=== PATIENT | male | born 1965 | race Caucasian/White ===

== ENCOUNTER 2017-04-04 12:29 | Emergency (ER) | payer MEDICAID ==
[~2017-04-04] VITALS: Ht 160 cm; Wt 122.3 kg
[~2017-04-04 12:29] MED LIST: ACET650S14 PR; ACID1PAC PO; AUD NEB; BISA10S PR; CEFX1I IV; DSS100 PO; HEPA500023 IV; IPRNEB IH; MOM30 PO; NIFE60TA71 PO; PANT40I IV; VANC1IV IV
[2017-04-04 13:11] LABS: APPEARANCE,URINE CLOUDY (CLEAR); GLUCOSE, URINE (UA) NEGATIVE (NEGATIVE); KETONES,URINE NEGATIVE (NEGATIVE); LEUKOCYTE ESTERASE ,URINE SMALL (NEGATIVE); OCCULT BLOOD,URINE MODERATE (NEGATIVE); PROTEIN,URINE SEE CONFIRM (NEGATIVE)
[2017-04-04 13:15] LABS: ADD UA MICROSCOPIC YES
[2017-04-04] MEDS ORDERED: ACETAMINOPHEN 500 MG TABLET PO ONE (13:15)
[2017-04-04] MEDS ORDERED: SULFAMETHOX/TRIMETH DS 800-160 MG/TABLET PO ONE (13:15)
[2017-04-04 13:17] LABS: SULFOSALICYLIC ACID,URINE 3+ (Negative)
[2017-04-04 13:20] LABS: SQUAMOUS EPITHELIAL CELL,UR Few /LPF (None Seen); WBC,URINE 51-100 /HPF (0-5)
[2017-04-04] MEDS ORDERED: CIPROFLOXACIN HCL 250 MG TABLET PO ONE (13:30)
[2017-04-04] MEDS ORDERED: PHENAZOPYRIDINE HCL 100 MG TABLET PO ONE (13:30)
[2017-04-04 14:13] VITALS: BP 158/111
== END 2017-04-04 14:28 | disposition home or self-care (01) ==
LOC: EMS 12:30
DX: N39.0 Urinary tract infection, site not specified (principal)
CPT/HCPCS: 87086; 99284

== ENCOUNTER 2017-08-05 11:09 | Emergency (ER) | payer MEDICAID ==
[~2017-08-05] VITALS: Ht 172.7 cm; Wt 100.0 kg
[2017-08-05] MEDS ORDERED: ACETAMINOPHEN 500 MG TABLET PO ONE (12:00)
[2017-08-05] MEDS ORDERED: ONDANSETRON HCL 4 MG/2 ML VIAL IVP ONE (12:00)
[2017-08-05] MEDS ORDERED: SODIUM CHLORIDE 0.9% 1,000 ML IV ONE (12:00)
[2017-08-05 12:12] LABS: HEMATOCRIT 34.5 % (41-53); LYMPHOCYTES # (AUTO) 0.8 K/uL (1.0-4.8); MEAN CORPUSCULAR HEMOGLOBIN 24.8 pg (26.0-34.0); MEAN CORPUSCULAR HGB CONC 31.8 G/dL (31.0-37.0); MEAN CORPUSCULAR VOLUME 78 fL (80-100); MONOCYTES # (AUTO) 0.7 K/uL (0.1-1.0); MONOCYTES % (AUTO) 9.2 % (2.0-9.0); NEUTROPHILS % (AUTO) 77.8 % (40.0-70.0); PLATELET COUNT (AUTO) 309 K/uL (150-450); RED BLOOD CELL COUNT(AUTO) 4.42 MIL/uL (4.50-5.90)
[2017-08-05 12:29] LABS: ANION GAP 11 mmol/L (8-16); CALCIUM, TOTAL 8.9 mg/dL (8.8-10.5); CARBON DIOXIDE 28 mmol/L (22-29); CHLORIDE 103 mmol/L (98-107); CREATININE 0.94 mg/dL (0.60-1.30); GLOMERULAR FILTR. RATE CALC > 60 mL/min (>60); GLUCOSE,RANDOM 99 mg/dL (70-110); SODIUM SERUM 142 mmol/L (136-145); UREA NITROGEN, BLOOD 11 mg/dL (7-18)
[2017-08-05 12:36] LABS: ALANINE AMINOTRANSFERASE 29 U/L (12-78); ALBUMIN 3.5 g/dL (3.4-5.0); ALKALINE PHOSPHATASE 96 U/L (46-116); ASPARTATE AMINOTRANSFERASE 26 U/L (15-37); BILIRUBIN,TOTAL 0.2 mg/dL (0.1-1.0); TOTAL PROTEIN, SERUM 7.8 g/dL (6.4-8.2)
[2017-08-05 12:54] LABS: INFLUENZA TYPE A NEGATIVE FOR TYPE A (NEGATIVE); INFLUENZA TYPE B POSITIVE FOR TYPE B (NEGATIVE)
[2017-08-05 13:42] VITALS: BP 167/92
== END 2017-08-05 13:52 | disposition home or self-care (01) ==
LOC: EMS 11:15
DX: J11.1 Influenza due to unidentified influenza virus with other respiratory manifestations (principal); R07.81 Pleurodynia; R11.0 Nausea; Z59.0 Homelessness
CPT/HCPCS: 36415; 71045; 80053; 85025; 87804; 96361; 96374; 99285; J2405; J7030

== ENCOUNTER 2017-10-04 07:24 | Emergency (ER) | payer MEDICAID ==
[~2017-10-04] VITALS: Ht 172.7 cm; Wt 113.5 kg
[2017-10-04 12:47] VITALS: BP 186/107
== END 2017-10-04 10:12 | disposition home or self-care (01) ==
LOC: EMS 07:26
DX: J40 Bronchitis, not specified as acute or chronic (principal); R78.71 Abnormal lead level in blood; J98.11 Atelectasis; I51.7 Cardiomegaly; Z59.0 Homelessness
CPT/HCPCS: 93005; 99284

== ENCOUNTER 2017-10-09 06:41 | Emergency (ER) | payer MEDICAID ==
[~2017-10-09] VITALS: Ht 172.7 cm; Wt 113.6 kg
[2017-10-09] MEDS ORDERED: GuaiFENesin/D-METHORPHAN [SUGAR-FREE] 200-20MG/10 ML SYRUP UDCUP PO ONE (08:45)
[2017-10-09] MEDS ORDERED: ACETAMINOPHEN/CODEINE 300-30 MG TABLET PO ONE (08:45)
[2017-10-09] MEDS ORDERED: AmLODIPine BESYLATE 5 MG TABLET PO ONE (08:45)
[2017-10-09 09:05] LABS: BASOPHILS % (AUTO) 0.5 % (0.0-2.0); EOSINOPHILS % (AUTO) 0.5 % (1.0-6.0); HEMATOCRIT 34.3 % (41-53); HEMOGLOBIN 10.8 g/dL (13.5-17.5); LYMPHOCYTES # (AUTO) 2.1 K/uL (1.0-4.8); LYMPHOCYTES % (AUTO) 14.9 % (22.0-44.0); MEAN CORPUSCULAR HEMOGLOBIN 24.2 pg (26.0-34.0); MEAN CORPUSCULAR HGB CONC 31.4 G/dL (31.0-37.0); MEAN CORPUSCULAR VOLUME 77 fL (80-100); MONOCYTES % (AUTO) 6.8 % (2.0-9.0); NEUTROPHILS # (AUTO) 10.9 K/uL (1.8-7.7); NEUTROPHILS % (AUTO) 77.3 % (40.0-70.0); PLATELET COUNT (AUTO) 378 K/uL (150-450); RED BLOOD CELL COUNT(AUTO) 4.45 MIL/uL (4.50-5.90); RED CELL DISTRIBUTION WIDTH 17.2 % (11.5-14.5)
[2017-10-09 09:09] LABS: ANION GAP 9 mmol/L (8-16); CALCIUM, TOTAL 8.9 mg/dL (8.8-10.5); CARBON DIOXIDE 27 mmol/L (22-29); CHLORIDE 101 mmol/L (98-107); CREATININE 0.93 mg/dL (0.60-1.30); GLOMERULAR FILTR. RATE CALC > 60 mL/min (>60); GLUCOSE,RANDOM 109 mg/dL (70-110); POTASSIUM 4.1 mmol/L (3.5-5.1); SODIUM SERUM 137 mmol/L (136-145); UREA NITROGEN, BLOOD 16 mg/dL (7-18)
[2017-10-09 09:14] LABS: ALANINE AMINOTRANSFERASE 39 U/L (12-78); ALKALINE PHOSPHATASE 110 U/L (46-116); ASPARTATE AMINOTRANSFERASE 33 U/L (15-37); BILIRUBIN,TOTAL 0.4 mg/dL (0.1-1.0); TOTAL PROTEIN, SERUM 7.9 g/dL (6.4-8.2)
[2017-10-09 09:16] VITALS: BP 172/105
[2017-10-09 09:21] LABS: B-TYPE NATRIURETIC PEPTIDE 22 pg/mL (0-100)
== END 2017-10-09 10:11 | disposition home or self-care (01) ==
LOC: EMS 06:42
DX: J20.9 Acute bronchitis, unspecified (principal); I10 Essential (primary) hypertension; R42 Dizziness and giddiness; M79.1 Myalgia; Z59.0 Homelessness
CPT/HCPCS: 93005; 99285